=== PATIENT | female | born 1955 | race Two or more races ===

== ENCOUNTER 2017-06-24 14:55 | Inpatient (IN) | payer BC ==
[~2017-06-24] VITALS: Ht 152.4 cm; Wt 107.7 kg
[2017-06-24 15:55] LABS: Hemoglobin 15.7 g/dL (12.2-16.2); Monocytes # (auto) 0.4 uL; Platelet Count (auto) 201 10^3/uL (140-450); Red Cell Distribution Width 13.2 % (11.8-14.3)
[2017-06-24 16:01] LABS: Basophils # (auto) 0.1 uL; Basophils % (auto) 1.1 % (0.0-2.0); Eosinophils # (auto) 0 uL; Eosinophils % (auto) 0.6 % (0.0-7.0); Hematocrit 46.5 % (36.0-46.0); Lymphocytes # (auto) 1.5 uL; Lymphocytes % (auto) 24.6 % (10.0-50.0); Mean Corpuscular Hemoglobin 30.3 pg (28.0-32.0); Mean Corpuscular Hgb Conc. 33.7 g/dL (32.0-36.0); Monocytes % (auto) 5.8 % (0.0-12.0); Neutrophils # (auto) 4.3 uL; Neutrophils % (auto) 67.9 % (37.0-80.0); Nucleated Red Blood Cells % 0.3 %; Red Blood Cells 5.17 10^6/uL (4.0-5.20); White Blood Cell 6.3 10^3/uL (4.4-10.8)
[2017-06-24 16:05] LABS: INR 0.95 (0.9-1.15); Partial Thromboplastin Time 25.4 sec (22.64-33.71); Prothrombin Time 10.4 sec (9.37-12.3)
[2017-06-24 16:15] LABS: Alanine Aminotransferase 56 U/L (13-56); Albumin 3.5 g/dL (3.4-5.0); Alkaline Phosphatase 204 U/L (45-117); Anion Gap 11 (5-15); Aspartate Aminotransferase 26 U/L (15-37); BUN/Creatinine Ratio 12.1; Bilirubin, Total 0.2 mg/dL (0.2-1.0); Blood Urea Nitrogen 13 mg/dL (7-18); Calcium 9.2 mg/dL (8.5-10.1); Carbon Dioxide 26 mmol/L (21-32); Chloride 96 mmol/L (98-107); GFR African American 67 mL/min; GFR Non-African American 56 mL/min; Glucose 399 mg/dL (74-106); Potassium 3.9 mmol/L (3.5-5.1); Sodium 133 mmol/L (136-145)
[2017-06-24] MEDS ORDERED: InsuLIN REG 1unit/0.01ml Soln (100units/ml) SC ONE (19:00)
[2017-06-24] MEDS ORDERED: SODIUM CHLORIDE 0.9% 1,000 ML IV ONE (19:00)
[2017-06-24] MEDS ORDERED: TEMAZEPAM 15 MG CAP PO PRN (23:15)
[2017-06-24] MEDS ORDERED: HYDROcodone-ACET 5/325MG TAB PO PRN (23:15)
[2017-06-24] MEDS ORDERED: NITROGLYCERIN 0.4 MG SL TAB SL PRN (23:15)
[2017-06-24] MEDS ORDERED: MORPHINE SULFATE 4 MG/ML SYR/VIAL IV PRN (23:15)
[2017-06-24] MEDS ORDERED: DEXTROSE (50%) 50ML SYRG IV PRN (23:15)
[2017-06-24] MEDS: ACETAMINOPHEN 325 MG TAB PO PRN (23:21)
[2017-06-24] MEDS: SODIUM CHLORIDE 0.9% 1,000 ML IV SCH (23:35)
[2017-06-25] VITALS (7 sets, daily range): BP systolic 102–135; BP diastolic 64–79
[2017-06-25] MEDS: ACCU-CHEK COMFORT CURVE STRIP VI SCH ×7 (00:46→23:45)
[2017-06-25] MEDS: InsuLIN REG 1unit/0.01ml Soln (100units/ml) SC SCH ×7 (00:47→23:45)
[2017-06-25] MEDS ORDERED: IBUP100S11 PO (01:30)
[2017-06-25] MEDS ORDERED: ASPI81TA27 PO (01:30)
[2017-06-25] MEDS ORDERED: LISI10TA6 PO (01:30)
[2017-06-25] MEDS ORDERED: METF-370 PO (01:30)
[2017-06-25] MEDS: ACETAMINOPHEN 325 MG TAB PO PRN ×3 (04:20→23:35)
[2017-06-25 07:09] LABS: Basophils # (auto) 0 uL; Basophils % (auto) 0.7 % (0.0-2.0); Eosinophils # (auto) 0.1 uL; Eosinophils % (auto) 1.1 % (0.0-7.0); Hemoglobin 14.1 g/dL (12.2-16.2); Lymphocytes # (auto) 1.9 uL; Lymphocytes % (auto) 33.6 % (10.0-50.0); Mean Corpuscular Hemoglobin 29.9 pg (28.0-32.0); Mean Corpuscular Hgb Conc. 33.6 g/dL (32.0-36.0); Mean Corpuscular Volume 89.2 fL (80.0-100.0); Monocytes # (auto) 0.4 uL; Monocytes % (auto) 7.7 % (0.0-12.0); Neutrophils # (auto) 3.1 uL; Neutrophils % (auto) 56.9 % (37.0-80.0); Platelet Count (auto) 180 10^3/uL (140-450); Red Blood Cells 4.71 10^6/uL (4.0-5.20); Red Cell Distribution Width 13.3 % (11.8-14.3); White Blood Cell 5.5 10^3/uL (4.4-10.8)
[2017-06-25 07:40] LABS: Albumin 2.8 g/dL (3.4-5.0); BUN/Creatinine Ratio 13.5; Bilirubin, Total 0.3 mg/dL (0.2-1.0); Calcium 8.6 mg/dL (8.5-10.1); Potassium 3.4 mmol/L (3.5-5.1); Total Protein 6.7 g/dL (6.4-8.2)
[2017-06-25] MEDS: ENOXAPARIN SOD 40 MG/0.4 ML SYRINGE SC SCH (09:23)
[2017-06-25] MEDS: FAMOTIDINE 20 MG TAB PO SCH ×2 (09:23→21:12)
[2017-06-25] MEDS: GABAPENTIN 100 MG CAP PO SCH (09:23)
[2017-06-25] MEDS: ONDANSETRON HCL 4 MG/2 ML VIAL IV PRN ×2 (11:38→23:44)
[2017-06-25] MEDS: SODIUM CHLORIDE 0.9% 1,000 ML IV SCH (12:10)
[2017-06-25] MEDS ORDERED: LORazepam 2MG/ML-1ML VIAL IV PRN (17:00)
[2017-06-25 17:43] LABS: Cholesterol 185 mg/dL (< 200); HDL Cholesterol 42 mg/dL (40-59); LDL Cholesterol 134 mg/dL (< 100); Triglycerides 142 mg/dL (< 150)
[2017-06-26] MEDS: SODIUM CHLORIDE 0.9% 1,000 ML IV SCH ×2 (02:17→16:20)
[2017-06-26] MEDS: ACCU-CHEK COMFORT CURVE STRIP VI SCH ×5 (03:57→19:51)
[2017-06-26] MEDS: InsuLIN REG 1unit/0.01ml Soln (100units/ml) SC SCH ×5 (03:57→20:00)
[2017-06-26 05:00] VITALS: BP 116/79
[2017-06-26 07:30] VITALS: BP 122/80
[2017-06-26] MEDS: FAMOTIDINE 20 MG TAB PO SCH ×2 (09:40→21:11)
[2017-06-26] MEDS: GABAPENTIN 100 MG CAP PO SCH (09:41)
[2017-06-26] MEDS: ENOXAPARIN SOD 40 MG/0.4 ML SYRINGE SC SCH (09:42)
[2017-06-26 14:14] VITALS: BP 118/82
[2017-06-26 16:30] VITALS: BP_SYST 129; BP_SYST 132; BP_SYST 134; BP_DIAS 76; BP_DIAS 77; BP_DIAS 84
[2017-06-26] MEDS ORDERED: MECLIZINE HCL 25 MG TAB PO PRN (16:45)
[2017-06-26] MEDS: ACETAMINOPHEN 325 MG TAB PO PRN (21:11)
[2017-06-26 22:00] VITALS: BP 111/60
[2017-06-27] MEDS: ACCU-CHEK COMFORT CURVE STRIP VI SCH ×4 (00:47→12:00)
[2017-06-27] MEDS: InsuLIN REG 1unit/0.01ml Soln (100units/ml) SC SCH ×4 (00:48→12:00)
[2017-06-27] MEDS: SODIUM CHLORIDE 0.9% 1,000 ML IV SCH (04:28)
[2017-06-27 05:00] VITALS: BP 121/68
[2017-06-27 08:13] VITALS: BP 175/75
[2017-06-27] MEDS: GABAPENTIN 100 MG CAP PO SCH (10:42)
[2017-06-27] MEDS: FAMOTIDINE 20 MG TAB PO SCH (10:42)
[2017-06-27] MEDS: ENOXAPARIN SOD 40 MG/0.4 ML SYRINGE SC SCH (10:42)
[2017-06-27 11:45] VITALS: BP 121/69
[2017-06-27 13:34] VITALS: BP 125/75
== END 2017-06-27 15:20 | disposition home or self-care (01) | DRG 638 ==
LOC: ER 14:55 → OVERFLOW 14:56 → WEST WING 06-25 00:10
PROVIDERS: ADMIT Nurse Practitioner; ATTEND Internal Medicine
PROC: 5A09357 Assistance with Respiratory Ventilation, Less than 24 Consecutive Hours, Continuous Positive Airway Pressure (ICD-10-PCS; principal; 2017-06-26)
PROC: 5A09357 Assistance with Respiratory Ventilation, Less than 24 Consecutive Hours, Continuous Positive Airway Pressure (ICD-10-PCS; 2017-06-27)
DX: E11.00 Type 2 diabetes mellitus with hyperosmolarity without nonketotic hyperglycemic-hyperosmolar coma (NKHHC) (principal); Z68.42 Body mass index [BMI] 45.0-49.9, adult; E11.42 Type 2 diabetes mellitus with diabetic polyneuropathy; I67.2 Cerebral atherosclerosis; E66.01 Morbid (severe) obesity due to excess calories; H81.10 Benign paroxysmal vertigo, unspecified ear; G47.33 Obstructive sleep apnea (adult) (pediatric); G47.10 Hypersomnia, unspecified; I10 Essential (primary) hypertension; Z82.49 Family history of ischemic heart disease and other diseases of the circulatory system; Z83.3 Family history of diabetes mellitus; Z90.49 Acquired absence of other specified parts of digestive tract
CPT/HCPCS: 36415; 70450; 70551; 71046; 80053; 80061; 82962; 83036; 84484; 85025; 85610; 85730; 93005; 93306; 94660; 94761; 96360; 96372; J1815; J2405

== ENCOUNTER 2018-04-24 13:44 | Emergency (ER) | payer SELFPAY ==
[~2018-04-24] VITALS: Ht 157.5 cm; Wt 99.8 kg
[~2018-04-24 13:44] MED LIST: ASPI81TA27 PO; IBUP100S11 PO; LISI10TA6 PO; METF-370 PO
[2018-04-24 14:05] VITALS: BP 145/83
[2018-04-24 15:43] LABS: Albumin 3.6 g/dL (3.4-5.0); BUN/Creatinine Ratio 13.3; Calcium 9.8 mg/dL (8.5-10.1); Potassium 4.7 mmol/L (3.5-5.1)
[2018-04-24 15:46] LABS: Bilirubin, Total 0.2 mg/dL (0.2-1.0); Total Protein 8.3 g/dL (6.4-8.2)
[2018-04-24 16:15] LABS: Basophils # (auto) 0 uL; Basophils % (auto) 0.5 % (0.0-2.0); Eosinophils # (auto) 0.1 uL; Eosinophils % (auto) 0.7 % (0.0-7.0); Hematocrit 47.6 % (36.0-46.0); Hemoglobin 15.8 g/dL (12.2-16.2); Lymphocytes # (auto) 1.7 uL; Lymphocytes % (auto) 21.7 % (10.0-50.0); Mean Corpuscular Hemoglobin 29.8 pg (28.0-32.0); Mean Corpuscular Hgb Conc. 33.2 g/dL (32.0-36.0); Mean Corpuscular Volume 89.8 fL (80.0-100.0); Monocytes # (auto) 0.4 uL; Monocytes % (auto) 4.7 % (0.0-12.0); Neutrophils # (auto) 5.7 uL; Neutrophils % (auto) 72.4 % (37.0-80.0); Nucleated Red Blood Cells % 0.1 %; Platelet Count (auto) 248 10^3/uL (140-450); Red Cell Distribution Width 13.2 % (11.8-14.3); White Blood Cell 7.9 10^3/uL (4.4-10.8)
[2018-04-24 16:27] LABS: Urine Bacteria FEW /hpf (None Seen); Urine Blood Negative /uL (Negative); Urine Specific Gravity 1.021 (1.001-1.035); Urine WBC 2 /hpf (0 - 5)
== END 2018-04-25 00:08 | disposition left against medical advice (07) ==
LOC: ER 13:44
DX: R73.9 Hyperglycemia, unspecified (principal); R53.1 Weakness; R11.0 Nausea; Z53.21 Procedure and treatment not carried out due to patient leaving prior to being seen by health care provider
CPT/HCPCS: 36415; 80053; 81001; 82962; 85025

== ENCOUNTER 2018-08-02 12:36 | Emergency (ER) | payer BC ==
[~2018-08-02] VITALS: Ht 157.5 cm; Wt 104.3 kg
[2018-08-02 14:05] LABS: Urine WBC None Seen /hpf (0 - 5)
[2018-08-02 14:15] LABS: Urine Blood Negative /uL (Negative); Urine Specific Gravity 1.012 (1.001-1.035)
[2018-08-02 14:28] LABS: Urine Bacteria FEW /hpf (None Seen)
[2018-08-02 22:37] VITALS: BP 139/87
[2018-08-02 23:21] LABS: Basophils # (auto) 0.1 uL; Basophils % (auto) 0.9 % (0.0-2.0); Eosinophils # (auto) 0.1 uL; Eosinophils % (auto) 0.7 % (0.0-7.0); Hematocrit 48.3 % (36.0-46.0); Hemoglobin 15.8 g/dL (12.2-16.2); Lymphocytes # (auto) 1.4 uL; Lymphocytes % (auto) 18.8 % (10.0-50.0); Mean Corpuscular Hemoglobin 29.6 pg (28.0-32.0); Mean Corpuscular Hgb Conc. 32.8 g/dL (32.0-36.0); Mean Corpuscular Volume 90.3 fL (80.0-100.0); Monocytes # (auto) 0.3 uL; Monocytes % (auto) 4.3 % (0.0-12.0); Neutrophils # (auto) 5.5 uL; Neutrophils % (auto) 75.3 % (37.0-80.0); Nucleated Red Blood Cells % 0.1 %; Platelet Count (auto) 218 10^3/uL (140-450); Red Blood Cells 5.35 10^6/uL (4.0-5.20); Red Cell Distribution Width 13.4 % (11.8-14.3); White Blood Cell 7.3 10^3/uL (4.4-10.8)
[2018-08-02 23:43] LABS: Albumin 3.8 g/dL (3.4-5.0); Calcium 9.9 mg/dL (8.5-10.1); Potassium 5.2 mmol/L (3.5-5.1)
[2018-08-02 23:45] LABS: BUN/Creatinine Ratio 11.2
[2018-08-02 23:48] LABS: Bilirubin, Total 0.3 mg/dL (0.2-1.0); Total Protein 8.7 g/dL (6.4-8.2)
== END 2018-08-03 00:10 | disposition home or self-care (01) ==
LOC: ER 12:46
DX: N39.0 Urinary tract infection, site not specified (principal); E11.9 Type 2 diabetes mellitus without complications; I10 Essential (primary) hypertension; Z90.49 Acquired absence of other specified parts of digestive tract; Z90.89 Acquired absence of other organs; Z88.6 Allergy status to analgesic agent
CPT/HCPCS: 36415; 80053; 81001; 82010; 82962; 85025; 93005

== ENCOUNTER → 2018-09-14 | Outpatient (CLI) | payer BC ==
[~2018-09-14] MED LIST changes: +ASPI-404 PO; -ASPI81TA27 PO
[2018-09-14 08:57] LABS: Basophils # (auto) 0 uL; Basophils % (auto) 0.4 % (0.0-2.0); Eosinophils # (auto) 0.1 uL; Eosinophils % (auto) 0.9 % (0.0-7.0); Hematocrit 46.1 % (36.0-46.0); Hemoglobin 15.5 g/dL (12.2-16.2); Lymphocytes # (auto) 1.3 uL; Lymphocytes % (auto) 22.6 % (10.0-50.0); Mean Corpuscular Hemoglobin 29.7 pg (28.0-32.0); Mean Corpuscular Hgb Conc. 33.5 g/dL (32.0-36.0); Mean Corpuscular Volume 88.5 fL (80.0-100.0); Monocytes # (auto) 0.3 uL; Monocytes % (auto) 6.1 % (0.0-12.0); Neutrophils # (auto) 3.9 uL; Nucleated Red Blood Cells % 0.1 %; Platelet Count (auto) 242 10^3/uL (140-450); Red Blood Cells 5.21 10^6/uL (4.0-5.20); Red Cell Distribution Width 13.4 % (11.8-14.3); White Blood Cell 5.6 10^3/uL (4.4-10.8)
[2018-09-14 10:45] LABS: Albumin 3.7 g/dL (3.4-5.0); Potassium 5.1 mmol/L (3.5-5.1)
[2018-09-14 10:52] LABS: BUN/Creatinine Ratio 11.9; Bilirubin, Total 0.4 mg/dL (0.2-1.0); Calcium 10.3 mg/dL (8.5-10.1); Total Protein 8.7 g/dL (6.4-8.2)
== END | disposition home or self-care (01) ==
LOC: LAB 08:21
PROVIDERS: ATTEND Internal Medicine
DX: E11.9 Type 2 diabetes mellitus without complications (principal); I10 Essential (primary) hypertension; E78.5 Hyperlipidemia, unspecified
CPT/HCPCS: 36415; 80053; 80061; 82043; 83036; 84443; 85025

== ENCOUNTER → 2018-09-18 | Outpatient (CLI) | payer BC | END | disposition home or self-care (01) | LOC: LAB 14:11 | PROVIDERS: ATTEND Internal Medicine | DX: E11.9 Type 2 diabetes mellitus without complications (principal); I10 Essential (primary) hypertension; E78.5 Hyperlipidemia, unspecified | CPT/HCPCS: 82270 ==